=== PATIENT | female | born 2000 | race Caucasian/White ===

== ENCOUNTER 2023-01-04 21:09 | Emergency (ER) | payer OTHER | END 2023-01-04 23:43 | disposition home or self-care (01) | LOC: ED 21:09 | DX: R55 Syncope and collapse (principal); F17.210 Nicotine dependence, cigarettes, uncomplicated; Z79.899 Other long term (current) drug therapy ==

== ENCOUNTER 2023-01-19 19:33 | Emergency (ER) | payer OTHER ==
[~2023-01-19] VITALS: Ht 180.3 cm; Wt 79.2 kg
--- OUTSIDE RECORDS SUMMARY | ~2023-01-19 | XMS | Continuity of Care Document ---
Demographics + + + | Address | [address] | | | [place] [address] | + + + | Preferred Language | Unknown | + + + | Marital Status | Never | + + + | Restoration Affiliation | Unknown | + + + | Race | White | + + + | Ethnic Group | Not or | + + + Author + + + | Author | [facility] | + + + | Organization | [facility] | + + + | Address | [address] | | | [place] [address] | + + + | Phone | | + + + Care Team Providers + + + + | Care Hotel And Dining Room Cashier Name | Role | Phone | + + + + Unavailable | Unavailable | + + + + Unavailable | Unavailable | + + + + Allergies No information. Encounters No information. Functional Status No information. Immunizations No information. Medications + + + + | date | description | facility | + + + + | 2023-01-04 00:00 | BUPRENORPHINE HCL/NALOXONE | [facility] | | | HCL | | + + + + | 2023-01-04 00:00 | SERTRALINE HCL | [facility] | + + + + | 2023-01-04 00:00 | AMPHET ASP/AMPHET/D-AMPHET | [facility] | | | | | + + + + | 2023-01-04 00:00 | CLONIDINE HCL | [facility] | + + + + | 2023-01-04 00:00 | HYDRALAZINE HCL | [facility] | + + + + Problems + + + + | date | description | facility | + + + + | 2023-01-04 00:00 | Syncope | [facility] | + + + + | 2023-01-04 21:09 | NICOTINE DEPENDENCE, | [facility] | | | CIGARETTES, UNCOMPLICATED | | + + + + | 2023-01-04 21:09 | Syncope and collapse | [facility] | + + + + | 2023-01-04 21:09 | OTHER RESIDENTIAL (CURRENT) | [facility] | | | DRUG THERAPY | | + + + + Procedures No information. Results/Labs +--------+--------+ +---------+--------+---------+ | test | date | facility | value | unit | notes | +--------+--------+ +---------+--------+---------+ + + | Result panel 1 | + + + + + + + + + | | 2023-01-04 | [facility] | YELLOW | (missing) | (missing) | | (unavailable | [facility]57:07 [facility] | | | | + + + + + + + + + | Result panel 2 | + + + + + +---------+ + + | | 2023-01-04 | [facility] | CLEAR | (missing) | (missing) | | (unavailable | 21:57:07 [facility] | | | | + + + +---------+ + + + + | Result panel 3 | + + + + + + + + + | | 2023-01-04 | [facility] | NEGATIVE | (missing) | (missing) | | (unavailable | [facility]:57:07 [facility] | | | | + + + + + + + + + | Result panel 4 | + + + + + + + + + | | 2023-01-04 | [facility] | NEGATIVE | (missing) | (missing) | | (unavailable | [facility]:57:07 [facility] | | | | + + + + + + + + + | Result panel 5 | + + + + + +---------+ + + | | 2023-01-04 | [facility] | TRACE | (missing) | (missing) | | (unavailable | [facility]:57:07 [facility] | | | | + + + +---------+ + + + + | Result panel 6 | + + + + + + + + + | | 2023-01-04 | [facility] | >=1.030 | (missing) | (missing) | | (unavailable | [facility]57:07 [facility] | | | | + + + + + + + + + | Result panel 7 | + + + + + + + + + | | 2023-01-04 | [facility] | NEGATIVE | (missing) | (missing) | | (unavailable | [facility]57:07 [facility] | | | | + + + + + + + + + | Result panel 8 | + + + + + +-------+ + + | | 2023-01-04 | [facility] | 5.5 | (missing) | (missing) | | (unavailable | [facility]57:07 [facility] | | | | + + + +-------+ + + + + | Result panel 9 | + + + + + + + + + | | 2023-01-04 | [facility] | NEGATIVE | (missing) | (missing) | | (unavailable | [facility]:57:07 [facility] | | | | + + + + + + + + + | Result panel 10 | + + + + + + + + + | | 2023-01-04 | [facility] | NORMAL | (missing) | (missing) | | (unavailable | [facility]:57:07 [facility] | | | | + + + + + + + + + | Result panel 11 | + + + + + + + + + | | 2023-01-04 | [facility] | NEGATIVE | (missing) | (missing) | | (unavailable | [facility]:57:07 [facility] | | | | + + + + + + + + + | Result panel 12 | + + + + + + + + + | | 2023-01-04 | [facility] | NEGATIVE | (missing) | (missing) | | (unavailable | 21:57:07 [facility] | | | | + + + + + + + + + | Result panel 13 | + + + + + + + + + | | 2023-01-04 | [facility] | NEGATIVE | (missing) | (missing) | | (unavailable | [facility]:57:07 [facility] | | | | + + + + + + + + + | Result panel 14 | + + + + + +-------+ + + | | 2023-01-04 | [facility] | 5.6 | (missing) | (missing) | | (unavailable | 22:20:07 [facility] | | | | + + + +-------+ + + + + | Result panel 15 | + + + + + +--------+ + + | | 2023-01-04 | [facility] | 44.5 | (missing) | (missing) | | (unavailable | 22:20:07 [facility] | | | | + + + +--------+ + + + + | Result panel 16 | + + + + + +--------+ + + | | 2023-01-04 | [facility] | 45.1 | (missing) | (missing) | | (unavailable | 22:20:07 [facility] | | | | + + + +--------+ + + + + | Result panel 17 | + + + + + +-------+ + + | | 2023-01-04 | [facility] | 7.3 | (missing) | (missing) | | (unavailable | 22:20:07 [facility] | | | | + + + +-------+ + + + + | Result panel 18 | + + + + + +-------+ + + | | 2023-01-04 | [facility] | 2.6 | (missing) | (missing) | | (unavailable | 22:20:07 [facility] | | | | + + + +-------+ + + + + | Result panel 19 | + + + + + +-------+ + + | | 2023-01-04 | [facility] | 0.5 | (missing) | (missing) | | (unavailable | :20:07 [facility] | | | | + + + +-------+ + + + + | Result panel 20 | + + + + + +--------+ + + | | 2023-01-04 | [facility] | 3.76 | (missing) | (missing) | | (unavailable | 22:20:07 [facility] | | | | + + + +--------+ + + + + | Result panel 21 | + + + + + +-------+---------+ + | | 2023-01-04 | [facility] | 135 | mg/dL | (missing) | | (unavailable | 22:20:07 [facility] | | | | + + + +-------+---------+ + + + | Result panel 22 | + + + + + +------+---------+ + | | 2023-01-04 | [facility] | 15 | mg/dL | (missing) | | (unavailable | 22:20:07 [facility] | | | | + + + +------+---------+ + + + | Result panel 23 | + + + + + +--------+---------+ + | | 2023-01-04 | [facility] | 0.76 | mg/dL | (missing) | | (unavailable | ::07 | [facility] | | | | + + + +--------+---------+ + + + | Result panel 24 | + + + + + +--------+ + + | | 2023-01-04 | [facility] | 11.7 | (missing) | (missing) | | (unavailable | :20:07 [facility] | | | | + + + +--------+ + + + + | Result panel 25 | + + + + + +-------+ + + | | 2023-01-04 | [facility] | 115 | (missing) | (missing) | | (unavailable | 22:20:07 [facility] | | | | + + + +-------+ + + + + | Result panel 26 | + + + + + +---------+ + + | | 2023-01-04 | [facility] | 19.73 | (missing) | (missing) | | (unavailable | 22:20:07 [facility] | | | | + + + +---------+ + + + + | Result panel 27 | + + + + + +-------+ + + | | 2023-01-04 | [facility] | 138 | (missing) | (missing) | | (unavailable | 22:20:07 [facility] | | | | + + + +-------+ + + + + | Result panel 28 | + + + + + +-------+ + + | | 2023-01-04 | [facility] | 3.7 | (missing) | (missing) | | (unavailable | 22:20:07 [facility] | | | | + + + +-------+ + + + + | Result panel 29 | + + + + + +-------+ + + | | 2023-01-04 | [facility] | 103 | (missing) | (missing) | | (unavailable | 22:20:07 [facility] | | | | + + + +-------+ + + + + | Result panel 30 | + + + + + +------+ + + | | 2023-01-04 | [facility] | 28 | (missing) | (missing) | | (unavailable | 22:20:07 [facility] | | | | + + + +------+ + + + + | Result panel 31 | + + + + + +--------+ + + | | 2023-01-04 | [facility] | 10.7 | (missing) | (missing) | | (unavailable | 22:20:07 [facility] | | | | + + + +--------+ + + + + | Result panel 32 | + + + + + +-------+---------+ + | | 2023-01-04 | [facility] | 8.5 | mg/dL | (missing) | | (unavailable | 22:20:07 [facility] | | | | + + + +-------+---------+ + + + | Result panel 33 | + + + + + +-------+ + + | | 2023-01-04 | [facility] | 6.4 | (missing) | (missing) | | (unavailable | 22:20:07 [facility] | | | | + + + +-------+ + + + + | Result panel 34 | + + + + + +-------+ + + | | 2023-01-04 | [facility] | 3.5 | (missing) | (missing) | | (unavailable | 22:20:07 [facility] | | | | + + + +-------+ + + + + | Result panel 35 | + + + + + +--------+ + + | | 2023-01-04 | [facility] | 34.5 | (missing) | (missing) | | (unavailable | 22:20:07 [facility] | | | | + + + +--------+ + + + + | Result panel 36 | + + + + + +-------+ + + | | 2023-01-04 | [facility] | 2.9 | (missing) | (missing) | | (unavailable | 22:20:07 [facility] | | | | + + + +-------+ + + + + | Result panel 37 | + + + + + +--------+ + + | | 2023-01-04 | [facility] | 1.21 | (missing) | (missing) | | (unavailable | 22:20:07 [facility] | | | | + + + +--------+ + + + + | Result panel 38 | + + + + + +-------+ + + | | 2023-01-04 | [facility] | 0.2 | (missing) | (missing) | | (unavailable | 22:20:07 [facility] | | | | + + + +-------+ + + + + | Result panel 39 | + + + + + +------+ + + | | 2023-01-04 | [facility] | 13 | (missing) | (missing) | | (unavailable | ::07 | [facility] | | | | + + + +------+ + + + + | Result panel 40 | + + + + + +------+ + + | | 2023-01-04 | [facility] | 22 | (missing) | (missing) | | (unavailable | 22::07 [facility] | | | | + + + +------+ + + + + | Result panel 41 | + + + + + +------+ + + | | 2023-01-04 | [facility] | 80 | (missing) | (missing) | | (unavailable | 22:20:07 [facility] | | | | + + + +------+ + + + + | Result panel 42 | + + + + + +--------+ + + | | 2023-01-04 | [facility] | 91.6 | (missing) | (missing) | | (unavailable | 22:20:07 [facility] | | | | + + + +--------+ + + + + | Result panel 43 | + + + + + +--------+ + + | | 2023-01-04 | [facility] | 31.1 | (missing) | (missing) | | (unavailable | 22:20:07 [facility] | | | | + + + +--------+ + + + + | Result panel 44 | + + + + + +--------+ + + | | 2023-01-04 | [facility] | 33.9 | (missing) | (missing) | | (unavailable | [facility]:20:07 [facility] | | | | + + + +--------+ + + + + | Result panel 45 | + + + + + +--------+ + + | | 2023-01-04 | [facility] | 14.2 | (missing) | (missing) | | (unavailable | [facility]:20:07 [facility] | | | | + + + +--------+ + + + + | Result panel 46 | + + + + + +-------+ + + | | 2023-01-04 | [facility] | 221 | (missing) | (missing) | | (unavailable | 22:20:07 [facility] | | | | + + + +-------+ + + Social History + + + + | date | description | facility | + + + + | 2023-01-04 00:00 | Unknown if ever smoked | [facility] | + + + + Vital Signs + + + +---------+ | date | measurement | value | units | + + + +---------+ | 2023-01-04 00:00 | BMI | 21.8 | kg/m2 | + + + +---------+ | 2023-01-04 00:00 | BP_diastolic | 72 | mmHg | + + + +---------+ | 2023-01-04 00:00 | BP_systolic | 103 | mmHg | + + + +---------+ | 2023-01-04 00:00 | heart_rate | 85 | /min | + + + +---------+ | 2023-01-04 00:00 | height_metric | 180.34 | cm | + + + +---------+ | 2023-01-04 00:00 | height_standard | 71 | in | + + + +---------+ | 2023-01-04 00:00 | o2_saturation | 100 | % | + + + +---------+ | 2023-01-04 00:00 | respiration_rate | 16 | /min | + + + +---------+ | 2023-01-04 00:00 | temperature_metric | 36.89 | C | | | | | | + + + +---------+ | 2023-01-04 00:00 | | 98.4 | F | | | temperature_standar | | | | | d | | | + + + +---------+ | 2023-01-04 00:00 | weight_metric | 70.76 | kg | + + + +---------+ | 2023-01-04 00:00 | weight_standard | 156 | lb | + + + +---------+"
--- OUTSIDE RECORDS SUMMARY | ~2023-01-19 | XMS | Continuity of Care Document ---
Demographics + + + | Address | [address] | | | [place] [address] | + + + | Preferred Language | Unknown | + + + | Marital Status | Never | + + + | Islam Affiliation | Unknown | + + + | Race | White | + + + | Ethnic Group | Not or | + + + Author + + + | Author | [facility] | + + + | Organization | [facility] | + + + | Address | [address] | | | [place] [address] | + + + | Phone | | + + + Care Team Providers + + + + | Care Dewaterer Operator Name | Role | Phone | + + + + Unavailable | Unavailable | + + + + Unavailable | Unavailable | + + + + Allergies No information. Encounters No information. Functional Status No information. Immunizations No information. Medications + + + + | date | description | facility | + + + + | 2023-01-04 00:00 | BUPRENORPHINE HCL/NALOXONE | [facility] | | | HCL | | + + + + | 2023-01-04 00:00 | SERTRALINE HCL | [facility] | + + + + | 2023-01-04 00:00 | AMPHET ASP/AMPHET/D-AMPHET | [facility] | | | | | + + + + | 2023-01-04 00:00 | CLONIDINE HCL | [facility] | + + + + | 2023-01-04 00:00 | HYDRALAZINE HCL | [facility] | + + + + Problems + + + + | date | description | facility | + + + + | 2023-01-04 00:00 | Syncope | [facility] | + + + + | 2023-01-04 21:09 | NICOTINE DEPENDENCE, | [facility] | | | CIGARETTES, UNCOMPLICATED | | + + + + | 2023-01-04 21:09 | Syncope and collapse | [facility] | + + + + | 2023-01-04 21:09 | OTHER USP (CURRENT) | [facility] | | | DRUG [...] +-------+ + + | | 2023-01-04 | [facility] | 221 | (missing) | (missing) | | (unavailable | 22:20:07 [facility] | | | | + + + +-------+ + + Social History + + + + | date | description | facility | + + + + | 2023-01-04 00:00 | Unknown if ever smoked | [facility] | + + + + Vital Signs [...]
[~2023-01-19 19:33] MED LIST: ADDERALL XR 3030 MG PO; CLONIDINE HCL0.2 MG PO; HYDRALAZINE HCL50 MG PO; SERTRALINE HCL50 MG PO; SUBOXONE 8 MG-1 EAC1 SL
--- OUTSIDE RECORDS SUMMARY | 2023-01-19 19:36 | XMS ---
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 Carlos has no Care Guidelines for this patient. Jn VISIT COUNT (12 MO.) [facility] NOTE: Visits indicate total known visits. 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
[2023-01-19] MEDS ORDERED: OMEPRAZOLE20 MG PO (19:50)
[2023-01-19] MEDS ORDERED: PRAZOSIN HCL1 MG PO (19:50)
[2023-01-19 20:01] LABS: BILIRUBIN, URINE NEGATIVE (negative); BLOOD/HGB, URINE TRACE-I (Negative); KETONE, URINE NEGATIVE (Negative); LEUK ESTERASE, URINE NEGATIVE (negative); NITRITE, URINE NEGATIVE (negative); PH, URINE 5.5 (5-7)
[2023-01-19 20:07] LABS: EPITHELIAL CELLS, URINE SQUAMOUS 2+ /lpf (0-1+)
[2023-01-19 20:08] LABS: BACTERIA, URINE RARE /hpf (negative); CASTS, URINE NONE SEEN \\lpf; CRYSTALS, URINE NONE SEEN (0-1+); REFLEX CULTURE, URINE No (No); WHITE BLOOD CELLS, URINE 0-1 /HPF (0-5)
[2023-01-19 20:34] VITALS: BP 122/81
== END 2023-01-19 20:34 | disposition home or self-care (01) ==
LOC: ED 19:33
PROVIDERS: Family Medicine
DX: N94.6 Dysmenorrhea, unspecified (principal); Z79.899 Other long term (current) drug therapy
CPT/HCPCS: 81001; 84703; 99284

== ENCOUNTER 2023-03-12 21:10 | Emergency (ER) | payer OTHER ==
[~2023-03-12] VITALS: Ht 180.3 cm; Wt 74.3 kg
[~2023-03-12 21:10] MED LIST changes: +OMEPRAZOLE20 MG PO; +PRAZOSIN HCL1 MG PO
--- OUTSIDE RECORDS SUMMARY | 2023-03-12 21:12 | XMS ---
PreManage Notification: LORENA ABEBE Security Press Set Up Events No recent Security Events currently on file [facility] There are no care providers on record at this time. Carlos has no Care Guidelines for this patient. Jn VISIT COUNT (12 MO.) 3 [facility] TOTAL 3 NOTE: Visits indicate total known visits. 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
[2023-03-12] MEDS ORDERED: MAXITROL EYE DRO5 ML OPTH (21:42)
[2023-03-12 21:57] VITALS: BP 123/84
== END 2023-03-12 22:01 | disposition home or self-care (01) ==
LOC: ED 21:10
DX: H00.022 Hordeolum internum right lower eyelid (principal); Z79.899 Other long term (current) drug therapy
CPT/HCPCS: 99283

== ENCOUNTER 2025-03-27 14:15 | Emergency (ER) | payer OTHER ==
[~2025-03-27] VITALS: Ht 180.3 cm; Wt 78.0 kg
[~2025-03-27 14:15] MED LIST changes: +MAXITROL EYE DRO5 ML OPTH
[2025-03-27] MEDS ORDERED: SODIUM CHLORIDE 0.9% 1,000 ML IV PRN (14:45)
[2025-03-27 15:03] LABS: BLOOD/HGB, URINE NEGATIVE (Negative); KETONE, URINE NEGATIVE (Negative); LEUK ESTERASE, URINE NEGATIVE (negative); NITRITE, URINE NEGATIVE (negative)
[2025-03-27 17:05] VITALS: BP 118/79
== END 2025-03-27 17:05 | disposition home or self-care (01) ==
LOC: ED 14:15
PROVIDERS: Emergency Medicine
DX: R10.A0 Flank pain, unspecified side (principal)
CPT/HCPCS: 80053; 81003; 84703; 85025; 96374; 99283; J2405; J7030